=== PATIENT | male | born 1955 | race Caucasian/White ===

== ENCOUNTER 2016-10-26 10:52 | Day surgery (SDC) | payer BC ==
--- NOTE | ~2016-10-26 | OP ---
Record Of Operation [facility] [address] [place]. [address] NAME: JUAN ZAZUETA : 53 STATUS : [facility]#: [id number] AGE: 60 ADM/REG DATE : 10/26/16 MR#: [id number] REPORT SERV DATE: 10/27/16 DICTATED BY: DMITRIY TO JR. DATE: 10/26/16 REPORT STATUS : Draft TRANSCRIBED BY: DAVID DATE: 10/26/16 DATE OF PROCEDURE: 10/26/2016 PREOPERATIVE DIAGNOSES: Left lower lobe adenocarcinoma, right middle lobe indeterminate mass, mediastinal lymphadenopathy, rule out metastatic cancer, COPD, hypertension, peptic ulcer disease, and kidney stones. POSTOPERATIVE DIAGNOSIS: Metastatic non-small cell lung cancer, final pathology pending. NAME OF OPERATION: Diagnostic and therapeutic bronchoscopy, endobronchial ultrasound with multiple fine-needle aspirations, timo stations 4R, 10R, 7. SURGEON: Dmitriy To MD. RESIDENT SURGEON: Dr. Ezio Geller. ANESTHESIA: Andre Gilbert. FINDINGS: On the bronchoscopy, there were no endobronchial lesions. There were mucous secretions which were evacuated. No biopsies were taken. Endobronchial ultrasound was then performed noting pathologically enlarged lymph nodes in the right paratracheal and right mainstem bronchial regions. There was a small lymph node, less concerning in the subcarinal space. All 3 timo stations had malignant cells compatible with a metastatic non-small cell lung cancer. Had some features more suggestive of a squamous cell although this differed from his original diagnosis. Additional material was sent for cell block. Final pathology is pending. DETAILS OF OPERATION: After adequate general anesthesia, the patient was intubated with an LMA. A diagnostic and therapeutic bronchoscopy was performed noting no endobronchial lesions. Mucous secretions were evacuated. Endobronchial ultrasound was then performed noting the nodes in the right paratracheal, right mainstem bronchial, and subcarinal regions. All 3 needle aspirates demonstrated metastatic non-small cell lung cancer. Additional material was sent for cell block. Adequate hemostasis was obtained. Further surveillance did not demonstrate any other significant lymph nodes that were amenable to biopsy. We could not get to the right middle lobe mass. After obtaining adequate hemostasis, the scope was withdrawn. The procedure was terminated at this point. The patient tolerated the procedure well and taken back to the recovery room in stable condition. MEDICAL ONCOLOGIST: Dr. Lyles in [place], [place]. NENO/DAVID Dmitriy Record Of Operation [facility] [address] [place]. [address] NAME: JUAN ZAZUETA : 53 STATUS : [facility]#: [id number] AGE: 60 ADM/REG DATE : 10/26/16 MR#: [id number] REPORT SERV DATE: 10/27/16 DICTATED BY: DMITRIY TO JR. DATE: 10/26/16 REPORT STATUS : Draft TRANSCRIBED BY: DAVID DATE: 10/26/16 Zuleika Gabriel M.D. / [id number] CC: Yani Kruger Jr., MD
[~2016-10-26 10:52] MED LIST: BREO ELLIPTA INH; CYANO1000T PO; LOTE40 PO; MULTI-VIT HP PO; NORV10 PO; PRILO PO
[2016-10-26 12:21] LABS: HEMATOCRIT 45.7 % (40.0-51.0); HEMOGLOBIN 15.4 g/dL (13.6-17.8)
[2016-10-26 12:22] LABS: BUN (BLOOD UREA NITROGEN) 15 MG/DL (6-23); CALCIUM, SERUM 8.6 MG/DL (8.5-10.4); CHLORIDE, SERUM 108 MMOL/L (96-112); CO2 (CARBON DIOXIDE) 26 MMOL/L (24-34); GFR AFRICAN AMERICAN 106 ML/MIN (>=60); GFR NON AFRICAN AMERICAN 92 ML/MIN (>=60); GLUCOSE, SERUM 89 MG/DL (60-99); POTASSIUM, SERUM 4.1 MMOL/L (3.5-5.3); SODIUM, SERUM 142 MMOL/L (135-148)
== END 2016-10-26 19:07 | disposition home or self-care (01) ==
LOC: DMU 10:52
PROVIDERS: Anesthesiology; Thoracic Surgery (Cardiothoracic Vascular Surgery)
PROC: 07B74ZX Excision of Thorax Lymphatic, Percutaneous Endoscopic Approach, Diagnostic (ICD-10-PCS; principal; 2016-10-26 14:00)
PROC: 0BCB8ZZ Extirpation of Matter from Left Lower Lobe Bronchus, Via Natural or Artificial Opening Endoscopic (ICD-10-PCS; 2016-10-26 14:00)
DX: C77.9 Secondary and unspecified malignant neoplasm of lymph node, unspecified (principal); C34.90 Malignant neoplasm of unspecified part of unspecified bronchus or lung; R59.1 Generalized enlarged lymph nodes; J44.9 Chronic obstructive pulmonary disease, unspecified; I10 Essential (primary) hypertension; K21.9 Gastro-esophageal reflux disease without esophagitis; Z87.442 Personal history of urinary calculi; Z87.891 Personal history of nicotine dependence; Z88.8 Allergy status to other drugs, medicaments and biological substances; Z79.899 Other long term (current) drug therapy; Z87.11 Personal history of peptic ulcer disease; Z98.890 Other specified postprocedural states
CPT/HCPCS: 80048; 85014; 85018; 88172; 88173; 88305; 88341; 88342; 93005; 94010; 94640; 94729; C1725; J2250; J2370; J2405; J3010